=== PATIENT | female | born 1995 | race Caucasian/White ===

== ENCOUNTER 2020-12-31 14:03 | Emergency (ER) | payer OTHER, SELFPAY ==
[2020-12-31 14:05] VITALS: BP 145/88; PULSE 94; RESP 16; TEMP 35.8; O2SAT 100; BMI 21.9
[2020-12-31 14:45] LABS: Absolute Lymphocyte Count 1.61 X10^3/uL (0.83-4.51); Absolute Neutrophil Count 8.2 X10^3/uL (2.0-7.7); Basophil# 0.05 X10^3/uL; Basophil% 0.5 % (0-1); Eosinophil# 0.35 X10^3/uL; Eosinophils% 3.2 % (0-5); Hematocrit 41.2 % (37-47); Hemoglobin 13.7 g/dL (12.0-15.0); Lymphocyte # 1.61 X10^3/ul (4.0); Lymphocyte % 14.5 % (19-41); Mean Corp Hgb Conc 33.3 g/dL (32-36); Mean Corpuscular Hgb 28.7 pg (27.0-32.0); Mean Corpuscular Volume 86.2 fL (81-99); Monocyte# 0.88 X10^3/uL; Monocyte% 7.9 % (0-10); NRBC Flagged by Analyzer 0 % (0-5); Neutrophil # 8.16 X10^3/uL (2.7-7.7); Neutrophil % 73.6 % (47-70); Platelet Count 260 K/mm3 (150-450); RBC Distribution Width CV 12.8 % (11.6-14.6); RBC Distribution Width SD 39.7 fl (35.1-43.9); Red Blood Count 4.78 M/mm3 (4.2-5.4); White Blood Count 11.1 K/mm3 (4.4-11.0)
--- NOTE | 2020-12-31 15:10 | ED.DCSUM_ITS ---
- ER Visit Summary Date of Service: 12/31/20 Chief Complaint: Pelvic pain and vaginal bleeding History of Present Illness: The patient is a [address] Kaiser. 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 She is a G0. She reports her last menstrual period was November 16. She has not taken a test. She reports that she has vaginal bleeding began 3 days ago. It is heavier than her typical bleeding. She reports there is pelvic pain that began yesterday. Is a cramping, dull pain that is 8/10 in severity at worse and 5-10 currently. Nothing makes this better or worse. She denies any vaginal discharge, dysuria, or frequency. Physical Examination: Vitals: Stable. Afebrile. General: Well-nourished and well-developed. Head: Normocephalic atraumatic. Neck: Supple, no lymphadenopathy. No JVD. Nontender. Cardiovascular: Regular rate and rhythm. No murmurs. Respiratory: No respiratory distress. Clear to auscultation bilaterally. Abdominal: Soft, moderate suprapubic tenderness to palpation, nondistended, normal bowel sounds. No guarding, rebound, or peritoneal signs. : Refused pelvic. Back: Nontender. Extremities: Nontender, no edema. Skin: Normal color, no rash. Neurologic: Alert and oriented ?3. Cranial nerves II through XII are intact. Normal strength and sensation. Psych: Normal affect. Test Results: CBC shows a white count of 11.1 with 74 segs neutrophils and 15 lymphocytes. Blood type is A positive. Quant is 1177. Emergency Department Course and Treatment: Patient refused pain or nausea medications. She is resting comfortably. Treatment Plan: Patient will have a transvaginal ultrasound to rule out an ectopic . This will be turned over to the oncoming physician. Disposition: Pending Impression: 1. Vaginal bleeding. 2. A positive blood type. 3. Positive test. This note was generated with [employer] dictation software. It may contain incorrect words, spelling, and punctuation that were not noted in review of the chart prior to signing ED Disposition - Plan for ED Patient: Referrals: Demetris Kaiser, [Primary Care Provider] -
[2020-12-31 15:30] LABS: hCG Titer Quant., Serum 1177 mIU/mL (1-3)
--- NOTE | 2020-12-31 15:35 | US_ITS ---
STUDY: FIRST TRIMESTER OBSTETRICAL ULTRASOUND REASON FOR EXAM: Female, 25 years old BLEEDING SINCE FRIDAY. LMP 11/16/2020-BY LMP 6WKS 3 DAYS TODAY, HCG 1177. PT HAS NOT YET SEEN AN OB DOCTOR. LMP: 11/16/2020 TECHNIQUE: Transvaginal TECHNICAL QUALITY: Adequate. PRIOR ULTRASOUND: None. FINDINGS: There is no demonstrated intrauterine gestational sac. The estimated gestation age (EGA) by LMP is 6 weeks, 3 days. The estimated date of delivery (ALDEN) by LMP is 08/23/2021. The uterus measures 7.6 x 5.5 x 3.5 cm. There is no demonstrated uterine fibroid. The cervix is closed. The right ovary measures 3.2 x 3.5 x 1.6 cm. Heterogeneous hyperemic lesion within the right ovary measuring 1.5 x 1.3 x 1.0 cm. There is no visualized right adnexal mass or complex lesion. The left ovary measures 2.9 x 1.8 x 1.1 cm. There is no left ovarian cyst. 4 mm para ovarian/adnexal cystic lesion surrounded by a small amount of free fluid. Minimal fluid in the cul-de-sac. US/Transvaginal w/Preg US IMPRESSION: No intrauterine . Bilateral ovarian or paraovarian lesions as noted above. Small amount of free fluid. The fracture considerations include early intrauterine , missed AB or ectopic . Electronically Signed: Adalid Marley MD at 17:58 EST , Service support ,
[2020-12-31 17:41] VITALS: BP 116/64; PULSE 78; RESP 12; O2SAT 98
--- NOTE | 2020-12-31 18:48 | ED.VISSUMM ---
- ER Visit Summary Date of Service: 12/31/20 Patient signed out to me pending ultrasound report. Patient has been hemodynamically stable in the emergency department. She has denied need for analgesics. Test Results: Pelvic ultrasound reveals no intrauterine . Bilateral ovarian or paraovarian lesions are noted. Considerations include early , missed AB, or ectopic . Emergency Department Course and Treatment: On repeat evaluation patient is resting comfortably. Abdominal examination is rather benign with only minimal tenderness in the lower abdomen. No guarding or rebound. Patient wanted an SENIOR BIOSTATISTICIAN that would be here at the hospital. I spoke with Dr. Mckeon from [facility]. She reviewed the ultrasound images in the emergency room. She suggested the patient have a repeat quant drawn at 48 hours. She stated the patient could call the office for follow-up if she wished to remain with their group. After discussing this with the patient she would prefer this. She is written an outpatient order to have a repeat quant drawn on the . She is given return instructions to come back to the ER for any worsened pain, bleeding, lightheadedness, dizziness, etc. Disposition: Discharge Impression: Threatened AB This note was generated with [employer] dictation software. It may contain incorrect words, spelling, and punctuation that were not noted in review of the chart prior to signing ED Disposition - Plan for ED Patient: Disposition: Home or Assisted Living Diagnosis: Threatened Instructions: ED Possible Miscarriage ... Referrals: Linette Mckeon MD [STAFF PHYSICIAN] - As soon as possible Additional Instructions: Have repeat labwork drawn on Jan 02 as discussed.
[2020-12-31 19:13] VITALS: BP 124/69; PULSE 84; RESP 16; O2SAT 97
== END 2020-12-31 19:25 | disposition home or self-care (01) ==
PROVIDERS: Emergency Provider Emergency Medicine; PCP Family Medicine
DX: O20.0 Threatened abortion (principal); Z3A.00 Weeks of gestation of pregnancy not specified
CPT/HCPCS: 76817; 84702; 85025; 86900; 86901; 99283; A4216

== ENCOUNTER → 2021-01-02 12:20 | Outpatient (CLI) | payer OTHER, SELFPAY ==
[2020-12-31 14:05] VITALS: BMI 21.9
[2021-01-02 13:32] LABS: hCG Titer Quant., Serum 276 mIU/mL (1-3)
== END ==
PROVIDERS: Nurse Practitioner Women's Health; PCP Family Medicine; Referring Provider Emergency Medicine; Visit Provider Emergency Medicine
DX: O20.0 Threatened abortion (principal); Z3A.00 Weeks of gestation of pregnancy not specified
CPT/HCPCS: 36415; 84702

== ENCOUNTER → 2021-03-23 08:54 | Outpatient (CLI) | payer OTHER, SELFPAY ==
--- NOTE | 2021-03-23 08:57 | US_ITS ---
STUDY: ABDOMINAL ULTRASOUND - RIGHT UPPER QUADRANT REASON FOR VISIT: Female, 25 years old right upper quadrant and epigastric pain. TECHNIQUE: Ultrasound evaluation of the right upper quadrant was performed with real-time and static sellers-scale imaging. TECHNICAL QUALITY: Adequate. COMPARISON: None. FINDINGS: Liver: The liver measures 10.5 cm. There is normal echogenicity of the liver. The bile ducts are within normal limits. There is hepatic color flow. The direction of portal flow is hepatopetal. There is no demonstrated mass lesion. Gallbladder: Normal distended gallbladder. The gallbladder wall measures 2 mm. There is a negative sonographic Dan''s sign. There is no pericholecystic fluid. There are no gallstones. Common Bile Duct (C.B.D.): The common bile duct measures 2 mm. Pancreas: Normal size of the head, body and tail of the pancreas. There is normal echogenicity of the pancreas. There is no demonstrated pancreatic mass or cyst. Right Kidney: Normal size of the right kidney. The right kidney measures 9.5 cm x 4.1 cm x 3.7 cm. Normal renal cortex. The right cortex measures 1.2 cm. There is no demonstrated renal mass or cyst. There is no right hydronephrosis. US/Gallbladder IMPRESSION: Normal right upper quadrant ultrasound examination. Electronically Signed: Po Louise MD at 12:53 EDT , Service support ,
--- NOTE | 2023-08-23 14:31 | PCM.HP.BLA ---
History and Physical Date of Admission: 08/23/23 HPI - GI History of Present Illness Chief Complaint: Foreign Body Narrative Narrative: 27-year-old female presents from the ENT office with foreign body sensation in her throat. She states that since last night has been having problems swallowing. Over the past few years, she does have difficulty swallowing and states that sometimes food gets stuck but she has been able to have it removed by herself. She is unable to swallow her own saliva currently. Of note, she went to the rolling mill operator helper today who performed an in office scope and did not notice any foreign body in her throat so he sent her over for gastroenterology consultation and evaluation. [facility] Medical History No acute medical problems no medical history Home Medications Vitamin 1 tab PO/SL DAILY 01/08/23 [History Last Taken 01/07/23 21:30] oxycodone 5 mg tablet 5 mg PO Q6H PRN pain (scale score 7-10) 4 days #16 tabs 01/08/23 [Rx Last Taken Unknown] Allergy/AdvReac Type Severity Reaction Status Date / Time No Known Allergies Allergy Verified 08/23/23 09:20 Social History Smoking Status: Never smoker ROS ROS ED ROS Narrative Constitutional: No fever, no chills. HEENT: No sore throat. No neck pain. No loss of vision. No rhinorrhea. Positive difficulty swallowing. Unable to swallow own saliva. Cardiovascular: No chest pain. No palpitations. No pedal edema. Respiratory: No cough, no shortness of breath. Abdominal: No abdominal pain. No nausea. No vomiting. Genitourinary: No dysuria. No hematuria. Musculoskeletal: No myalgias. No arthralgias. Neurologic: No headaches. No dizziness. No lightheadedness. Skin: No rash. No change in color. Psychiatric: No depression. No anxiety. EXAM Physical Exam Narrative Exam Narrative: Afebrile. Vital signs noted. HEENT: Normocephalic. Atraumatic. PERRL, EOMI. Neck soft and supple. No point tenderness or step off. Airway patent. Spitting up saliva in emesis bag Cardiovascular: Regular rate and rhythm. No murmurs, rubs, or gallops appreciated. Respiratory: No tachypnea. Lungs clear to auscultation bilaterally. Gastrointestinal: Abdomen soft, nontender, with normoactive bowel sounds. No rebound or guarding. Neurological: Awake. Alert. Nonfocal, nonlateralizing. Skin: No rash. Normal color. No pallor. Musculoskeletal: No pedal edema. Full range of motion extremities. Const Vital Signs: 08/23/2309:12 08/23/2309:20 08/23/2309:33 Temperature 96.0 F L Temperature Source Temporal Pulse Rate 88 90 Respiratory Rate 16 Respiratory Effort Normal Non-Labored Respiratory Pattern Normal Blood Pressure 119/74 Blood Pressure Mean 89 Pulse Ox 100 99 Oxygen Delivery Method Room Air Room Air Assessment & Plan Assessment/Plan (1) Foreign body: PLAN: She will undergo an upper endoscopy to remove chicken from her esophagus. She was explained alternatives, risk, benefits including understanding bleeding, infection, sepsis, perforation, need for emergent surgery . She will have an ASA of 2.
== END ==
PROVIDERS: PCP Family Medicine
DX: R10.11 Right upper quadrant pain (principal); R10.13 Epigastric pain
CPT/HCPCS: 76705

== ENCOUNTER → 2022-05-28 | Outpatient (CLI) | payer OTHER, SELFPAY ==
[2022-05-28 11:58] LABS: Absolute Lymphocyte Count 1.76 X10^3/uL (0.83-4.51); Basophil# 0.05 X10^3/uL; Basophil% 0.6 % (0-1); Eosinophil# 0.18 X10^3/uL; Eosinophils% 2.1 % (0-5); Hematocrit 40.3 % (37-47); Hemoglobin 13.5 g/dL (12.0-15.0); Lymphocyte # 1.76 X10^3/ul (0.83-4.51); Lymphocyte % 20.2 % (19-41); Mean Corp Hgb Conc 33.5 g/dL (32-36); Mean Corpuscular Volume 86.5 fL (81-99); Monocyte# 0.73 X10^3/uL; Monocyte% 8.4 % (0-10); NRBC Flagged by Analyzer 0 % (0-5); Neutrophil # 5.96 X10^3/uL (2.7-7.7); Neutrophil % 68.4 % (47-70); Platelet Count 279 K/mm3 (150-450); RBC Distribution Width CV 13.1 % (11.6-14.6); RBC Distribution Width SD 41.2 fl (35.1-43.9); Red Blood Count 4.66 M/mm3 (4.2-5.4); White Blood Count 8.7 K/mm3 (4.4-11.0)
[2022-05-28 15:13] LABS: HIV - WCH Non-Reactive (Nonreactive); Hepatitis B Surface Antigen Non-Reactive (Nonreactive); Hepatitis C Antibody Non-Reactive (Nonreactive); Rubella IgG Reactive (Nonreactive); Syphilis Antibodies Non-reactive
[2022-05-30 00:07] LABS: Chlamydia By Nucleic Acid AMP Negative (Negative)
[2022-05-30 16:48] LABS: Gonococcus By Nucleic Acid AMP Negative (Negative)
[2022-05-30 18:41] LABS: HPV Reflexed? NOT INDICATED
== END | disposition home or self-care (01) ==
PROVIDERS: PCP Family Medicine; Visit Provider Obstetrics & Gynecology
DX: Z34.81 Encounter for supervision of other normal pregnancy, first trimester (principal); Z12.4 Encounter for screening for malignant neoplasm of cervix; Z11.3 Encounter for screening for infections with a predominantly sexual mode of transmission
CPT/HCPCS: 36415; 85025; 86703; 86762; 86780; 86803; 87086; 87088; 87340; 87491; 87591; 88175; G0145

== ENCOUNTER 2022-10-03 11:16 | Outpatient (CLI) | payer OTHER, SELFPAY ==
[2022-10-03 11:24] LABS: Absolute Lymphocyte Count 1.34 X10^3/uL (0.83-4.51); Absolute Neutrophil Count 6.6 X10^3/uL (2.0-7.7); Basophil# 0.03 X10^3/uL; Basophil% 0.3 % (0-1); Eosinophil# 0.21 X10^3/uL; Eosinophils% 2.3 % (0-5); Hematocrit 33.7 % (37-47); Hemoglobin 11.2 g/dL (12.0-15.0); Lymphocyte # 1.34 X10^3/ul (0.83-4.51); Mean Corp Hgb Conc 33.2 g/dL (32-36); Mean Corpuscular Hgb 29.6 pg (27.0-32.0); Mean Corpuscular Volume 89.2 fL (81-99); Mean Platelet Vol. 9.5 fl (6.2-12.0); Monocyte# 0.64 X10^3/uL; Monocyte% 7.2 % (0-10); NRBC Flagged by Analyzer 0 % (0-5); Neutrophil # 6.63 X10^3/uL (2.7-7.7); Neutrophil % 74.1 % (47-70); Platelet Count 249 K/mm3 (150-450); RBC Distribution Width CV 13.7 % (11.6-14.6); RBC Distribution Width SD 44.9 fl (35.1-43.9); Red Blood Count 3.78 M/mm3 (4.2-5.4)
[2022-10-03 11:31] LABS: Glucose Challenge Gest 1H 50g 107 mg/dL (70-140)
== END 2022-10-03 23:59 | disposition home or self-care (01) ==
LOC: LABSPEC 11:16
PROVIDERS: PCP Family Medicine; Visit Provider Obstetrics & Gynecology
DX: Z34.82 Encounter for supervision of other normal pregnancy, second trimester (principal)
CPT/HCPCS: 82950; 85025

== ENCOUNTER → 2022-12-18 | Outpatient (CLI) | payer SELFPAY ==
[2022-12-18 10:39] LABS: Absolute Lymphocyte Count 1.86 X10^3/uL (0.83-4.51); Basophil# 0.04 X10^3/uL; Basophil% 0.4 % (0-1); Eosinophil# 0.22 X10^3/uL; Eosinophils% 2.3 % (0-5); Hematocrit 33.2 % (37-47); Lymphocyte # 1.86 X10^3/ul (0.83-4.51); Lymphocyte % 19.7 % (19-41); Mean Corp Hgb Conc 33.1 g/dL (32-36); Mean Corpuscular Hgb 29.2 pg (27.0-32.0); Mean Corpuscular Volume 88.1 fL (81-99); Mean Platelet Vol. 9.6 fl (6.2-12.0); Monocyte# 1.12 X10^3/uL; Monocyte% 11.9 % (0-10); NRBC Flagged by Analyzer 0 % (0-5); Neutrophil # 6.02 X10^3/uL (2.7-7.7); Platelet Count 215 K/mm3 (150-450); RBC Distribution Width CV 13.5 % (11.6-14.6); RBC Distribution Width SD 42.9 fl (35.1-43.9); Red Blood Count 3.77 M/mm3 (4.2-5.4); White Blood Count 9.4 K/mm3 (4.4-11.0)
[2022-12-18 11:43] LABS: Syphilis Antibodies Non-reactive
== END | disposition home or self-care (01) ==
LOC: WOBLAB 10:03
PROVIDERS: PCP Family Medicine; Visit Provider Obstetrics & Gynecology
DX: Z34.83 Encounter for supervision of other normal pregnancy, third trimester (principal); Z36.85 Encounter for antenatal screening for Streptococcus B
CPT/HCPCS: 36415; 85025; 86780; 87081

== ENCOUNTER 2023-01-08 05:00 | Inpatient (IN) | payer SELFPAY, OTHER ==
[2023-01-08] VITALS (18 sets, daily range): BP systolic 110–126; BP diastolic 54–80; PULSE 77–97; RESP 14–16; TEMP 36–36.8; O2SAT 95–99; BMI 27.6
[2023-01-08] MEDS: Lactated Ringers 1,000 ML 999 ML IV (05:20)
[2023-01-08 05:33] LABS: Absolute Lymphocyte Count 1.97 X10^3/uL (0.83-4.51); Absolute Neutrophil Count 6.4 X10^3/uL (2.0-7.7); Basophil# 0.02 X10^3/uL; Basophil% 0.2 % (0-1); Eosinophil# 0.14 X10^3/uL; Eosinophils% 1.4 % (0-5); Hematocrit 32.4 % (37-47); Hemoglobin 10.7 g/dL (12.0-15.0); Lymphocyte # 1.97 X10^3/ul (0.83-4.51); Lymphocyte % 20.3 % (19-41); Mean Corpuscular Hgb 28.2 pg (27.0-32.0); Mean Corpuscular Volume 85.5 fL (81-99); Mean Platelet Vol. 9.7 fl (6.2-12.0); Monocyte# 1.06 X10^3/uL; Monocyte% 10.9 % (0-10); NRBC Flagged by Analyzer 0 % (0-5); Neutrophil # 6.41 X10^3/uL (2.7-7.7); Neutrophil % 66.3 % (47-70); Platelet Count 234 K/mm3 (150-450); RBC Distribution Width CV 13.2 % (11.6-14.6); RBC Distribution Width SD 40.6 fl (35.1-43.9); Red Blood Count 3.79 M/mm3 (4.2-5.4); White Blood Count 9.7 K/mm3 (4.4-11.0)
[2023-01-08] MEDS: Acetaminophen 500 MG Tablet 1000 MG PO (05:41)
[2023-01-08] MEDS: Lactated Ringers 1,000 ML 150 ML IV (06:23)
--- NOTE | 2023-01-08 06:23 | PCM.HP.BLA ---
History and Physical Date of Admission: 01/08/23 Chief complaint: Breech History present illness: 27-year-old G2, P0 at 39 weeks and 5 days with ALDEN 01/10/2023 arrives for primary section for breech. Denies headache, visual changes, chest pain, shortness of breath, nausea vomit, right upper quadrant pain. Patient states good movement. Obstetric history: G1: SAB G2: Current Past medical history: None Medications: vitamin Allergies: No known drug allergies Past surgical history: None Family history: Denies history DVT or PE Social history: Denies smoking, alcohol use, drug use Review of systems: Besides above pertinent positives a full review of systems was performed and found to be negative Physical exam: Vitals: Blood pressure 126/76 pulse 92 respiratory rate 16 temperature 97.5 ?F SPO2 97% on room air General: Normal-appearing no acute distress HEENT: Normocephalic atraumatic no cervical of adenopathy Cardiac/respiratory: No use of accessory muscles, nonlabored breathing Abdomen: Soft, nontender, gravid Extremities: No peripheral edema normal peripheral pulses Psych: Normal affect normal demeanor nonpressured speech Labs: White blood cell count 9.7 hemoglobin 10.7 hematocrit 32.4% platelets 234 Assessment and plan: 27-year-old G2, P0 at 39 weeks and 5 days for primary section for breech Admit labor and delivery CEFM Ancef 2 g Routine orders
[2023-01-08] MEDS: Sodium Citrate/Citric Acid 30 ML UDC PO (06:43)
[2023-01-08] MEDS: Cefazolin 2 GM in 0.9% Normal Saline 100 ML IV (07:11)
--- NOTE | 2023-01-08 08:03 | OP.PCM_ITS ---
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 Normal uterus, tubes, and ovaries. Consent: Patient with breech presentation elects for primary section Via Pfannenstiel incision. Patient understands risk of the procedure include but are not limited to visceral or vascular injury, prolonged hospitalization, blood loss and need for transfusion, reoperation. Patient state understanding wish to proceed. All questions were answered and consent was signed. Procedure: Patient was brought back to the OR where spinal anesthesia was found to be adequate. 2 g of Ancef were given for infection prophylaxis. Patient was prepared and draped in a supine position with leftward tilt. A Pfannenstiel incision was made at the skin with a scalpel. The incision was carried down to the fascia with a scalpel. The fascia was excised and extended laterally. Rectus muscle was dissected the midline down to the level of the pubic symphysis. Preperitoneal fatty tissue was noted and peritoneum was entered bluntly. Peritoneum was extended superiorly and inferiorly with good visualization of bladder. Bladder blade was inserted vesicouterine peritoneum was identified. Low transverse hysterotomy was made. Baby was delivered in standard breech fashion. Cord was clamped and cut. Baby handed off to nursing. Placenta was delivered via cord traction and fundal massage. IV oxytocin was initiated in order to facilitate uterine contractions. Uterus was exteriorized and wiped out with dry laparotomy sponge in order to remove remaining placental membranes. Uterus was closed in continuous running fashion. Using a Bovie and [id number] sutures hemostasis was achieved. Uterus was placed back in the abdominal cavity and the incision was reinspected, good hemostasis was noted. Fascia was closed in continuous running fashion with PDS suture. Subcutaneous irrigation was performed and good hemostasis was noted. Skin was closed in a subcuticular fashion. Good hemostasis was noted. All counts were correct x2. Patient tolerated procedure well and was brought to recovery in stable condition.
[2023-01-08] MEDS: Oxytocin 15 Units/NS 250ml 15 UNITS/250 ML IV.SOLN 83 UNITS IV (08:15)
[2023-01-08] MEDS: Ketorolac 30 MG/ML Syringe IV ×3 (08:56→20:57)
[2023-01-08] MEDS: Senna/Docusate Sodium 1 Tablet PO (11:34)
[2023-01-08] MEDS: Lactated Ringers 1,000 ML 100 ML IV (11:34)
[2023-01-08] MEDS: Acetaminophen 650 MG/20 ML UDC 1000 MG PO ×2 (12:09→18:05)
[2023-01-08] MEDS: 0.9% Saline Lock 10 ML Syringe IV (20:57)
[2023-01-08] MEDS: Enoxaparin 40 MG/0.4 ML Syringe SC (22:02)
[2023-01-09] MEDS: Acetaminophen 650 MG/20 ML UDC 1000 MG PO ×4 (00:03→19:05)
[2023-01-09 00:11] VITALS: BP 104/60; PULSE 84; RESP 16; TEMP 36.3; O2SAT 97
[2023-01-09] MEDS: 0.9% Saline Lock 10 ML Syringe IV (02:55)
[2023-01-09] MEDS: Ketorolac 30 MG/ML Syringe IV (02:55)
[2023-01-09 03:54] VITALS: BP 119/56; PULSE 74; RESP 16; TEMP 36.4; O2SAT 97
[2023-01-09 06:16] LABS: Hematocrit 24.2 % (37-47); Hemoglobin 7.9 g/dL (12.0-15.0); Mean Corp Hgb Conc 32.6 g/dL (32-36); Mean Corpuscular Hgb 28.7 pg (27.0-32.0); Mean Platelet Vol. 9.3 fl (6.2-12.0); Platelet Count 178 K/mm3 (150-450); RBC Distribution Width CV 13.3 % (11.6-14.6); RBC Distribution Width SD 42.8 fl (35.1-43.9); Red Blood Count 2.75 M/mm3 (4.2-5.4); White Blood Count 11.1 K/mm3 (4.4-11.0)
--- NOTE | 2023-01-09 07:29 | PCM.PN.OB ---
Subjective Subjective Feeling well. Pain controlled. Lochia minimal. Working on breast-feeding. Objective Data Objective Data Vital Signs: Vital Signs Temp Pulse Resp BP Pulse Ox O2 Del Method 97.6 F L 74 16 119/56 L 97 Room Air 01/09/23 03:54 01/09/23 03:54 01/09/23 03:54 01/09/23 03:54 01/09/23 03:54 01/09/23 03:54 Oxygen Delivery Method Room Air Weight: 68.492 kg Body Mass Index (BMI) 27.6 Intake & Output: Intake and Output for Last 24 Hours 01/07/23 01/08/23 01/09/23 23:59 23:59 23:59 Intake Total 2558.67 / 2558.67 Output Total 1250 / 1250 Balance 1308.67 / 1308.67 Lab / Micro Data Attestation: I reviewed the patient's lab results. Result Diagrams: 01/09/23 06:07 Labs: Laboratory Results - last 24 hr 01/09/23 06:07: WBC 11.1 H, RBC 2.75 L, Hgb 7.9 L, Hct 24.2 L, MCV 88.0, MCH 28.7, MCHC 32.6, RDW Std Deviation 42.8, RDW Coeff of Tristian 13.3, Plt Count 178, MPV 9.3 Physical Exam Const alert, oriented x3 and no apparent distress HEENT normocephalic Head and Scalp: atraumatic Neck full ROM Resp normal respiratory effort Cardio regular rate GI normal to inspection, nondistended, normoactive bowel sounds GI Narrative: Uterus 2 cm below umbilicus, dressing clean and dry Back/Spine normal ROM Extremity normal to inspection Extremity Narrative: Minimal pedal edema Neuro no focal motor deficits and no sensory deficits noted Psych mental status grossly normal and affect normal Assessment & Plan (1) Acute postoperative pain: PLAN: Postop day 1 status post primary section for breech position. Complicated by acute on chronic anemia secondary to blood loss. Iron supplement on home-going. Vitals stable and asymptomatic. Baby may have tongue-tie, may need clipped. Otherwise working on breast-feeding and currently hand expressing to feed. Pain is controlled. Desires home-going today. Discharge home.
--- NOTE | 2023-01-09 07:30 | DCINST_ITS ---
Discharge Instructions Diet Discharge Diet: No restrictions Activity Discharge Activity: Return to Normal Activity and May Shower May resume sexual activity in: 4-6 weeks Weight Bearing Status: Weight bearing as tolerated Lifting Restrictions: No greater than 25 pounds Dressing / Incision Call your doctor if your incision/area has: Continuous Slow Oozing, Increased Redness and Swelling at the incision site Call your doctor if you observe: Fever of 101 or Higher, Change in Color, Inability to urinate, Using more than 1 pad per hour, Shortness of breath, Dizziness, Swelling in the ankles, Chest pain and Calf discomfort Remove Dressing in: 1 week Cleanse incision/area with: Soap & Water and Keep Dressing Clean & Dry Follow Up Care Please Follow Up With: Ted Pope MD When: 2-week and 6-week visit Test Results: Test results from this visit will be discussed in further detail at your follow- up appointment, if applicable. Discharge Plan Admission Admit Date/Time: 01/08/23 05:00 Primary Reason for Your Visit: section Attending Provider: Ted Pope Primary Care Provider: Demetris Kiaser Instructions Additional Instructions / Restrictions: Regular diet. Okay to shower. No tub baths for 2 weeks. No intercourse for 4 to 6 weeks. No lifting over 25 pounds for 2 to 3 weeks. Call if fevers, chills, chest pain, shortness of breath. Follow-up 2 weeks postoperatively Discharge Orders/Prescriptions Prescriptions: New oxycodone 5 mg tablet 5 mg PO Q6H PRN (Reason: pain (scale score 7-10)) 4 Days Qty: 16 0RF Continued Vitamin 1 tablet tablet 1 tab PO/SL DAILY Referrals / Follow Up: Demetris Kaiser DO [Primary Care Provider] - Disposition Disposition (needs filled in before D/C Order can be placed): Home, Self Care
[2023-01-09 09:30] VITALS: BP 113/59; PULSE 75; RESP 16; TEMP 36.7; O2SAT 97
[2023-01-09] MEDS: Ibuprofen 600 MG Tablet PO ×3 (09:37→21:59)
[2023-01-09] MEDS: Senna/Docusate Sodium 1 Tablet PO (09:37)
[2023-01-09 14:45] VITALS: BP 117/72; PULSE 81; RESP 16; TEMP 36.7; O2SAT 97
[2023-01-09 19:29] VITALS: BP 117/67; PULSE 72; RESP 16; TEMP 36.4; O2SAT 97
[2023-01-09] MEDS: Enoxaparin 40 MG/0.4 ML Syringe SC (21:59)
[2023-01-10] MEDS: Acetaminophen 650 MG/20 ML UDC 1000 MG PO ×3 (01:14→13:25)
[2023-01-10 01:37] VITALS: BP 109/53; PULSE 79; RESP 16; TEMP 36.7; O2SAT 98
[2023-01-10] MEDS: Ibuprofen 600 MG Tablet PO ×2 (04:44→13:25)
--- NOTE | 2023-01-10 07:26 | PCM.DC.BLA ---
Discharge Summary Date of Admission: 01/08/23 Date of Discharge: 01/10/23 Summary: Patient arrived on 01/08/2023 for scheduled section for breech. section performed on 01/08/2023. Patient with support otherwise routine postoperative recovery. Discharge home on 01/10/2023 Meaningful Use Info Meaningful Use Diagnoses (Choose all that apply): None applicable Discharge Plan Admission Admit Date/Time: 01/08/23 05:00 Primary Reason for Your Visit: section Attending Provider: Ted Pope Primary Care Provider: Demetris Kaiser Instructions Additional Instructions / Restrictions: Regular diet. Okay to shower. No tub baths for 2 weeks. No intercourse for 4 to 6 weeks. No lifting over 25 pounds for 2 to 3 weeks. Call if fevers, chills, chest pain, shortness of breath. Follow-up 2 weeks postoperatively Discharge Orders/Prescriptions Prescriptions: New oxycodone 5 mg tablet 5 mg PO Q6H PRN (Reason: pain (scale score 7-10)) 4 Days Qty: 16 0RF Continued Vitamin 1 tablet tablet 1 tab PO/SL DAILY Referrals / Follow Up: Demetris Kaiser DO [Primary Care Provider] - Disposition Disposition (needs filled in before D/C Order can be placed): Home, Self Care
--- NOTE | 2023-01-10 07:27 | PN.OBGYN_ITS ---
Subjective Subjective No overnight complaints. Pain well controlled Objective Data Objective Data Vital Signs: Vital Signs Temp Pulse Resp BP Pulse Ox O2 Del Method 98.0 F 79 16 109/53 L 98 Room Air 01/10/23 01:37 01/10/23 01:37 01/10/23 01:37 01/10/23 01:37 01/10/23 01:37 01/10/23 01:37 Oxygen Delivery Method Room Air Weight: 151 lb Body Mass Index (BMI) 27.6 Intake & Output: Intake and Output for Last 24 Hours 01/08/23 01/09/23 01/10/23 23:59 23:59 23:59 Intake Total 2558.67 / 2558.67 Output Total 1250 / 1250 Balance 1308.67 / 1308.67 Lab / Micro Data Result Diagrams: 01/09/23 06:07 Physical Exam Const alert, oriented x3, no apparent distress, average body habitus, healthy appearing and well nourished HEENT normocephalic and moist oral mucous membranes Eyes PERRL Neck full ROM Resp normal respiratory effort, no retractions and no use of accessory muscles GI GI Narrative: Soft, nontender, bandage clean dry and intact Extremity normal to inspection and full ROM Neuro moves all extremities and no focal motor deficits Psych mental status grossly normal, affect normal, speech normal and activity/motor behavior normal Assessment & Plan (1) delivery delivered: PLAN: Postop day 2 status post primary section for breech. Breast- feeding, to see today. Pain well controlled. Okay to discharge home today
[2023-01-10 08:49] VITALS: BP 112/66; PULSE 77; RESP 17; TEMP 36.4; O2SAT 96
[2023-01-10] MEDS: Senna/Docusate Sodium 1 Tablet PO (13:25)
[2023-01-10 13:30] VITALS: BP 127/69; PULSE 87; RESP 16; TEMP 36.9
== END 2023-01-10 14:05 | disposition home or self-care (01) | DRG 788 ==
PROVIDERS: Admitting Provider Obstetrics & Gynecology; PCP Family Medicine; Visit Provider Obstetrics & Gynecology
PROC: 10D00Z1 Extraction of Products of Conception, Low, Open Approach (ICD-10-PCS; CPT 59514; principal; 2023-01-08 06:55)
DX: O32.1XX0 Maternal care for breech presentation, not applicable or unspecified (principal); Z37.0 Single live birth; Z3A.39 39 weeks gestation of pregnancy
CPT/HCPCS: 59025; 85025; 85027; 86850; 86900; 86901; 99221; J7120; A4216; G0378

== ENCOUNTER 2023-08-23 09:12 | Day surgery (SDC) | payer OTHER, SELFPAY ==
[2023-08-23] VITALS (9 sets, daily range): BP systolic 104–119; BP diastolic 60–74; PULSE 68–100; RESP 16–18; TEMP 35.6–36.8; O2SAT 92–100; BMI 22.5
--- NOTE | 2023-08-23 | ESO_PTH ---
PATIENT: ROBINA ALLEN LOC: [facility] [place] U#:[id number] AGE/SX: 27/F ROOM: RE08/23/[address]: Dr. Marco Thao DO : 1995 BED: DIS: 08/23/2023 SPEC #: [id number] RECD: 08/25/23 08:50 STATUS: JESSICA RELauren #: [id number] MIGUEL ÁNGEL: 08/23/23 00:[address]: Marco Thao DEPT: SURGICAL PATHOLOGY RECD BY: Dominick Macedo ENTERED: 08/25/23 09:41 SP TYPE: KARSON FRANCOIS DR: Dr. Demetris Kaiser DO Tissues: Esophagus, NOS Procedures: Surgery Specimen Level IV HEADER OPERATION: EGD, esophageal dilation PRE-OP DIAGNOSIS: Foreign body TISSUE SUBMITTED: Random esophagus biopsy MICROSCOPIC DIAGNOSIS Esophagus, random biopsy: Eosinophilic esophagitis. See comment. AM:sona 08/26/2023 COMMENT Eosinophils focally number greater than 20 in 1 high power field. Clinical correlation is suggested. MICROSCOPIC DESCRIPTION Slides are reviewed. GROSS DESCRIPTION Received in fixative is one container labeled with the patient's name and designated random esophagus. The specimen consists of multiple irregular fragments of light poole soft tissue that in aggregate measure 2.0 x 1.0 x 0.1 cm. The specimen is totally submitted in one cassette. / AM:sona 08/25/2023 TC:3 CPT: 82288
--- NOTE | 2023-08-23 09:58 | EDS_ITS ---
HPI HPI - GI History of Present Illness Chief Complaint: Foreign Body Narrative Narrative: 27-year-old female presents from the ENT office with foreign body sensation in her throat. She states that since last night has been having problems swallowing. Over the past few years, she does have difficulty swallowing and states that sometimes food gets stuck but she has been able to have it removed by herself. She is unable to swallow her own saliva currently. Of note, she went to the cinder worker today who performed an in office scope and did not notice any foreign body in her throat so he sent her over for gastroenterology consultation and evaluation. [facility] Medical History No acute medical problems no medical history Home Medications Vitamin 1 tab PO/SL DAILY 01/08/23 [History Last Taken 01/07/23 21:30] oxycodone 5 mg tablet 5 mg PO Q6H PRN pain (scale score 7-10) 4 days #16 tabs 01/08/23 [Rx Last Taken Unknown] Allergy/AdvReac Type Severity Reaction Status Date / Time No Known Allergies Allergy Verified 08/23/23 09:20 Social History Smoking Status: Never smoker ROS ROS ED ROS Narrative Constitutional: No fever, no chills. HEENT: No sore throat. No neck pain. No loss of vision. No rhinorrhea. Positive difficulty swallowing. Unable to swallow own saliva. Cardiovascular: No chest pain. No palpitations. No pedal edema. Respiratory: No cough, no shortness of breath. Abdominal: No abdominal pain. No nausea. No vomiting. Genitourinary: No dysuria. No hematuria. Musculoskeletal: No myalgias. No arthralgias. Neurologic: No headaches. No dizziness. No lightheadedness. Skin: No rash. No change in color. Psychiatric: No depression. No anxiety. EXAM Physical Exam Narrative Exam Narrative: Afebrile. Vital signs noted. HEENT: Normocephalic. Atraumatic. PERRL, EOMI. Neck soft and supple. No point tenderness or step off. Airway patent. Spitting up saliva in emesis bag Cardiovascular: Regular rate and rhythm. No murmurs, rubs, or gallops appreciated. Respiratory: No tachypnea. Lungs clear to auscultation bilaterally. Gastrointestinal: Abdomen soft, nontender, with normoactive bowel sounds. No rebound or guarding. Neurological: Awake. Alert. Nonfocal, nonlateralizing. Skin: No rash. Normal color. No pallor. Musculoskeletal: No pedal edema. Full range of motion extremities. Const Vital Signs: 08/23/23 09:12 08/23/23 09:20 08/23/23 09:33 Temperature 96.0 F L Temperature Source Temporal Pulse Rate 88 90 Respiratory Rate 16 Respiratory Effort Normal Non-Labored Respiratory Pattern Normal Blood Pressure 119/74 Blood Pressure Mean 89 Pulse Ox 100 99 Oxygen Delivery Method Room Air Room Air 08/23/23 14:02 Temperature 98 F Temperature Source Pulse Rate 68 Respiratory Rate 16 Respiratory Effort Respiratory Pattern Blood Pressure Blood Pressure Mean Pulse Ox Oxygen Delivery Method MDM MDM MDM Narrative Medical decision making narrative: Concern is for esophageal foreign body. As she has already been to the ENT/cinder worker and there is no foreign body in the throat/pharynx, she most likely has an esophageal food impaction. IV will be inserted and she will be administered glucagon 1 mg intravenously. I contacted Dr. Thao with gastroenterology who will come to the ED in approximately 2 hours. She is awaiting her turn on the OR schedule. Disposition is to endoscopy/OR. Patient is in stable condition. Lab Data Labs: Laboratory Results - last 24 hr 08/23/23 14:15 Urine Test Negative Discharge Plan Disposition Disposition: Acute Care Hospital [facility] Discharge Date/Time: 08/23/23 14:03
[2023-08-23] MEDS: Glucagon 1 MG/ML Syringe IV (11:49)
[2023-08-23 14:27] LABS: Internal QC Validated? YES +Cl - CLEAR BKGD; Pregnancy, Urine Negative Negative
[2023-08-23] MEDS: Lactated Ringers 1,000 ML 15 ML IV (14:30)
--- NOTE | 2023-08-23 15:04 | OP.CCLET_ITS ---
08/23/2023 Demetris Kaiser Re : Upper GI endoscopy procedure for Radha Ruiz Dear Job This procedure was performed on Wednesday, August 23, 2023. My impressions and recommendations are as follows: Impressions : - Esophageal mucosal changes consistent with eosinophilic esophagitis. - Food in the middle third of the esophagus. Removal was successful. - Benign-appearing esophageal stenoses. Dilated. - Small hiatal hernia. - No gross lesions in the duodenal bulb. - Biopsies were taken with a cold forceps for evaluation of eosinophilic esophagitis. Recommendations : - Discharge patient to home. - Full liquid diet today. - Use Protonix (pantoprazole) 40 mg PO BID for 8 weeks. - No aspirin, ibuprofen, naproxen, or other non-steroidal anti-inflammatory drugs for 13 days. My findings are described in the full procedure note, which is enclosed. If I can be of further assistance, please feel free to contact me at . Sincerely, Marco Thao, 08/23/2023 3:03:24 PM This report has been signed electronically.
--- NOTE | 2023-08-23 15:04 | OP.EGD_ITS ---
Patient Name: Radha Ruiz Procedure Date: 08/23/2023 2:29 PM Date of : 1995 Age: 27 Procedure: Upper GI endoscopy Indications: Dysphagia Providers: Marco Thao DO Medicines: Monitored Anesthesia Care Patient Profile: This is a 27 year old female. Refer to note in patient chart for documentation of history and physical. Patient has symptoms of acute dysphagia. Complications: No immediate complications. Procedure: Pre-Anesthesia Assessment: - Prior to the procedure, a History and Physical was performed, and patient medications and allergies were reviewed. The patient is competent. The risks and benefits of the procedure and the sedation options and risks were discussed with the patient. All questions were answered and informed consent was obtained. Patient identification and proposed procedure were verified by the physician in the pre-procedure area. Mental Status Examination: alert and oriented. Airway Examination: normal oropharyngeal airway and neck mobility. Respiratory Examination: clear to auscultation. CV Examination: normal. Prophylactic Antibiotics: The patient does not require prophylactic antibiotics. Prior Anticoagulants: The patient has taken no anticoagulant or antiplatelet agents. ASA Grade Assessment: II - A patient with mild systemic disease. After reviewing the risks and benefits, the patient was deemed in satisfactory condition to undergo the procedure. The anesthesia plan was to use monitored anesthesia care (MAC). Immediately prior to administration of medications, the patient was re-assessed for adequacy to receive sedatives. The heart rate, respiratory rate, oxygen saturations, blood pressure, adequacy of pulmonary ventilation, and response to care were monitored throughout the procedure. The physical status of the patient was re-assessed after the procedure. After obtaining informed consent, the endoscope was passed under direct vision. Throughout the procedure, the patient's blood pressure, pulse, and oxygen saturations were monitored continuously. The Endoscope was introduced through the mouth, and advanced to the second part of duodenum. The upper GI endoscopy was accomplished without difficulty. The patient tolerated the procedure well. Scope In: 2:42:08 PM Scope Out: 2:53:01 PM Total Procedure Duration Time 0 hours 10 minutes 53 seconds Findings: Mucosal changes including ringed esophagus, feline appearance, longitudinal furrows, small-caliber esophagus, white plaques, circumferential folds, congestion (edema) and crepe paper esophagus were found in the entire esophagus. Esophageal findings were graded using the Eosinophilic Esophagitis Endoscopic Reference Score (EoE-EREFS) as: Edema Grade 1 Present (decreased clarity or absence of vascular markings), Rings Grade 3 Severe (distinct rings that do not permit passage of diagnostic 8-10 mm endoscope), Exudates Grade 2 Severe (scattered white lesions involving 10 percent or greater of the esophageal surface area), Furrows Grade 2 Severe (vertical lines with clear depth) and Stricture present. Biopsies were obtained from the proximal and distal esophagus with cold forceps for histology of suspected eosinophilic esophagitis. Verification of patient identification for the specimen was done. Estimated blood loss was minimal. Food was found in the middle third of the esophagus. Removal was accomplished with a Ryder net. Verification of patient identification for the specimen was done. Estimated blood loss was minimal. Three benign-appearing, intrinsic severe (stenosis; an endoscope cannot pass) stenoses were found 24 to 26 cm from the incisors. The stenoses were traversed after dilation. A TTS dilator was passed through the scope. Dilation with a 12-13.5-15 mm balloon dilator was performed to 13.5 mm. The dilation site was examined and showed moderate improvement in luminal narrowing. Estimated blood loss was minimal. A small hiatal hernia was present. The exam of the stomach was otherwise normal. No gross lesions were noted in the duodenal bulb. Impression: - Esophageal mucosal changes consistent with eosinophilic esophagitis. - Food in the middle third of the esophagus. Removal was successful. - Benign-appearing esophageal stenoses. Dilated. - Small hiatal hernia. - No gross lesions in the duodenal bulb. - Biopsies were taken with a cold forceps for evaluation of eosinophilic esophagitis. Recommendation: - Discharge patient to home. - Full liquid diet today. - Use Protonix (pantoprazole) 40 mg PO BID for 8 weeks. - No aspirin, ibuprofen, naproxen, or other non-steroidal anti-inflammatory drugs for 13 days. Procedure Code(s): --- Professional --- 49263, Esophagogastroduodenoscopy, flexible, transoral; with removal of foreign body(s) 22072, 51, Esophagogastroduodenoscopy, flexible, transoral; with transendoscopic balloon dilation of esophagus (less than 30 mm diameter) 00115, 59, Esophagogastroduodenoscopy, flexible, transoral; with biopsy, single or multiple CPT copyright 2021 [employer]. All rights reserved. The codes documented in this report are preliminary and upon crystal calibrator review may be revised to meet current compliance requirements. Marco Thao DO 08/23/2023 3:03:24 PM This report has been signed electronically. Number of Addenda: 0 Note Initiated On: 08/23/2023 2:29 PM
== END 2023-08-23 15:49 | disposition home or self-care (01) ==
LOC: ED 12:46 → SDC 14:25
PROVIDERS: Anesthesiology; Emergency Provider Emergency Medicine; PCP Family Medicine; Visit Provider Internal Medicine Gastroenterology
PROC: 0DJ08ZZ Inspection of Upper Intestinal Tract, Via Natural or Artificial Opening Endoscopic (ICD-10-PCS; CPT 43235; principal; 2023-08-23 14:15)
DX: K20.0 Eosinophilic esophagitis (principal); K22.2 Esophageal obstruction; K44.9 Diaphragmatic hernia without obstruction or gangrene; T18.108A Unspecified foreign body in esophagus causing other injury, initial encounter; R13.10 Dysphagia, unspecified; Z79.899 Other long term (current) drug therapy; X58.XXXA Exposure to other specified factors, initial encounter
CPT/HCPCS: 43249; 43239; 43247; 81025; 88305; 99285; J7030; J7120; A4216; J1610; J2405